=== PATIENT | female | born 1955 | race Caucasian/White ===

== ENCOUNTER → 2018-12-09 | Outpatient (CLI) | payer MEDICARE ==
[~2018-12-09] MED LIST: ALBU90OI; ALBUIS; AMOCLA875 PO; ATOR10; HYDACE5 PO; IBUP800 PO; LISI10; METF500
== END | disposition home or self-care (01) ==
LOC: LAB SHORT 08:30 → LAB 08:30
DX: J39.8 Other specified diseases of upper respiratory tract (principal)
CPT/HCPCS: 87070; 87077; 87185; 87186; 87205

== ENCOUNTER → 2022-09-03 | Outpatient (CLI) | payer MEDICARE | END | disposition home or self-care (01) | LOC: LAB 13:21 → LAB SHORT 13:21 | DX: R05.1 Acute cough (principal) | CPT/HCPCS: 87070; 87077; 87186; 87205 ==